=== PATIENT | female | born 1945 | race Caucasian/White ===

== ENCOUNTER 2022-12-05 17:11 | Emergency (ER) | payer MEDICARE, OTHER ==
[~2022-12-05] VITALS: Ht 167.6 cm; Wt 79.5 kg
[~2022-12-05 17:11] MED LIST: AMLO-257 PO; ASPI81TA87 PO; ATOR40TA28 PO; BUSP5TAB20 PO; DOCU-412 PO; FAMO20 PO; GABA-1181 PO; GLUC-252 PO; LEVO88TA4 PO; MELA5TAB21 PO; NALO12.52 PO; PALI1.5T7 PO; ROPI0.2535 PO; ROPI1TAB46 PO; SERT-158 PO; TRAZ-252 PO; VALB40CA2 PO
[2022-12-05 18:35] VITALS: TEMP 98.4
[2022-12-05 18:36] VITALS: BP 134/82; PULSE 87; RESP 16
== END 2022-12-05 19:17 | disposition home or self-care (01) ==
LOC: EMS 17:14
DX: S02.2XXA Fracture of nasal bones, initial encounter for closed fracture (principal); S06.0X0A Concussion without loss of consciousness, initial encounter; F32.A Depression, unspecified; K21.9 Gastro-esophageal reflux disease without esophagitis; E78.00 Pure hypercholesterolemia, unspecified; I10 Essential (primary) hypertension; G43.909 Migraine, unspecified, not intractable, without status migrainosus; W18.39XA Other fall on same level, initial encounter; Y93.89 Activity, other specified; Y92.89 Other specified places as the place of occurrence of the external cause; Y99.8 Other external cause status
CPT/HCPCS: 99283